=== PATIENT | male | born 1980 | race Caucasian/White ===

== ENCOUNTER 2016-07-31 16:04 | Emergency (ER) | payer OTHER ==
[2016-07-31] MEDS ORDERED: LIDOCAINE HCL 20 ML UDC PO ONE (16:24)
[2016-07-31] MEDS ORDERED: MAG HYDROX/ALUMINUM HYD/SIMETH 30 ML UDC PO ONE (16:24)
[2016-07-31] MEDS ORDERED: SUCRALFATE 1 G/10 ML UDC PO ONE (16:24)
--- NOTE | 2016-07-31 16:36 | ERNOTE ---
Chest Pain/Cardiac HPI Date of Service: 07/31/16 Chief Complaint: Chest Pain Time Seen by Provider: 07/31/16 16:11 Source: patient, RN notes reviewed Exam Limitations: no limitations Immunizations: IMMUNIZATION HX Immunizations Up to Date Yes History of Influenza Vaccine No Hx Pneumococcal Vaccination No Allergies/Adverse Reactions: Allergies cat dander Allergy (Verified 07/31/16 16:19) Home Medications: HOME MEDICATIONS NK [No Home Medication] 07/31/16 [Last Taken Unknown] Pain Score #1 Pain Score: 4 Narrative: 36 y/o male ambulatory to the ED for chest pain that began last evening while he was at a concert. The episode was brief, and followed by numbness that spread all over his body and then resolved. He then felt fine for the rest of the evening. He has since had pain off and on throughout the day today. He states that it is not pain, but more of a discomfort. He reports being tired and just not feeling right. Date (Duration): 07/30/16 Timing: intermittent Severity/Quality: mild Location: substernal, left chest Chest Pain Radiation: no radiation Activities at Onset: rest Modifying Factors - Improves: Present: nothing Modifying Factors - Worsens: Absent: breathing, coughing, eating, exercise, position, movement, rest Nitro Today/Relief: no nitro taken today Aspirin Treatment Today: 81 mg x 2 Prior Chest Pain/Cardiac Workup: Reports: no prior cardiac workup Prior Treatment: Reports: recently seen, treated by physician - for bronchitis, 6 wks ago Review of Systems - Review of Systems Constitutional: Present: recent illness, fatigue, malaise. Absent: fever, chills EYE: Present: no symptoms reported ENT: Present: no symptoms reported Respiratory: Present: cough. Absent: shortness of breath, wheezing Cardiology: Present: chest pain. Absent: palpitations, syncope, edema Gastrointestinal/Abdominal: Absent: nausea, vomiting, abdominal pain Genitourinary: Present: no symptoms reported Musculoskeletal: Absent: back pain, muscle pain, neck pain Skin: Absent: lesions, lumps, change in color Neurological: Present: numbness, tingling. Absent: headache, dizziness/light- headedness Endocrine: Present: no symptoms reported Hematologic/Lymphatic: Present: no symptoms reported Psych: Present: anxiety - Patient's Past Medical History Patient History - Medical: Other - psoriasis Patient History - Cardiac/Respiratory: Asthma Patient History - Cancer: No Hx of Cancer Patient History - Surgical Procedures: No surgical history Patient History - Other: None - Social History Living Situations: spouse Abuse History: No History of abuse Psych History: No pertinent hx Smoking Status: Never smoker Alcohol Use: occasionally Drug Use: none - Immunizations Immunizations Up to Date: Yes Hx Pneumococcal Vaccination: No History of Influenza Vaccine: No Physical Exam - Physical Exam General Appearance: Present: wd/wn, alert, no apparent distress Eye Exam: Normal inspection: bilateral Neck: Present: normal inspection, nontender, supple Respiratory: Present: no respiratory distress, normal breath sounds, no accessory muscle use, chest nontender, lungs clear Cardiovascular/Chest: Present: regular rate, rhythm, no murmur, normal peripheral pulses Extremity Exam: Present: normal inspection, no edema Neurological Exam: Present: alert, oriented, normal mood/affect Skin Exam: Present: normal color, warm/dry ED Progress - Results and Orders Patient's Lab Results:: I have reviewed the patient's lab results. - Vital Signs Patient's Vital Signs:: I have reviewed the patient's vital signs. Vital Signs: Vital Signs 07/31/16 07/31/16 16:11 16:23 Temperature 37.1 C Pulse Rate 92 90 Respiratory 16 Rate Blood Pressure 149/97 O2 Sat by Pulse 96 Oximetry - EKG EKG: NSR, RBBB - incomplete EKG read: Interp. by me - X-Ray X-Ray #1 X-Ray: chest Interpretation: Reviewed by me X-ray Comments: No acute cardiopulmonary process noted. - Progress/Reassessment Chief Complaint: Chest Pain Progress:: Unchanged Plan - Plan Plan: No change in "pain" after GI cocktail but states that his indigestion symptoms improved. Offered Toradol IM but reports he can take ibuprofen at home. Labs, xray and EKG are unremarkable. Discussed f/u with PCP for recheck of blood pressure as he reports this has been elevated for a while. Agreeable to return if symptoms worsen. Departure - Departure Clinical Impression: Chest pain of uncertain etiology Disposition: Home Follow Up Needed Condition: Stable Instructions: Chest Wall Pain Additional Instructions: Return for worsening symptoms Contact Dr. Judd this week for follow up Referrals: Sam Judd MD [Primary Care Provider] -
[2016-07-31 16:39] LABS: Hematocrit 47.1 % (42.0-52.0); Hemoglobin 15.8 gm/dL (13.5-18.0); Mean Cell Volume 87.1 fl (78-100); Mean Corpuscular Hemoglobin 29.2 pg (27-31); Mean Corpuscular Hgb Conc 33.5 g/dl (32-36); Mean Platelet Volume 9.9 fl (6.0-9.5); Neutrophil # 3.9 K/mm3 (1.3-6.0); Neutrophil % 60.7 % (42-75.0); Platelet Count 241 K/mm3 (150-450); Red Blood Count 5.41 M/mm3 (4.7-6.0); Red Cell Distribution Width 13.1 % (11.5-14.0); White Blood Count 6.5 K/mm3 (4.0-10.5)
--- OUTSIDE RECORDS SUMMARY | 2016-07-31 16:42 | XMS REPORT | Continuity of Care Document ---
:1980 Author Organization [facility] ([facility]) [place] [address] Phone [phone] Care Team Providers Name Role Phone Unavailable Primary Care Provider Unavailable Source Comments This disclosure is being made pursuant to the Care Everywhere program, applicable federal and state laws, and may not contain all informaitonavailable regarding this patient.[facility] ([facility]) Active Allergies and Adverse Reactions Not on File Current Medications Not on file Active Problems Not on file Social History Tobacco Use Types Packs/Day Years Used Date Never Assessed Plan of Care Health Maintenance Due Date Last Done Comments Hepatitis B Vaccine (1 of 3 - Primary Series) 1980 Tdap Vaccine 1990 Lipid Disorder Screening 1997 MMR Vaccine 1997 Td Vaccine 1997 Influenza Vaccine: Seasonal (#1) 12/29/2015 Results from Last 3 Months Not on file
[2016-07-31 17:06] LABS: ALT 53 U/L (19-67); AST 20 U/L (0-48); Alkaline Phosphatase * 75 U/L (50-170); Anion Gap 12.1 mmol/L (6.8-13.8); BUN/Creatinine Ratio 8.5 (9.0-21.6); Bilirubin, Total 0.8 mg/dL (0.0-1.1); Blood Urea Nitrogen 11 mg/dL (6-23); Calcium * 9.3 mg/dL (7.9-10.9); Carbon Dioxide 29.9 mmol/L (24-32.6); Chloride 102 mmol/L (97-106); Glucose * 129 mg/dL (70-110); Sodium 140 mmol/L (132-142); Total Protein 7.8 gm/dL (6.2-8.2)
[2016-07-31 17:11] LABS: Troponin I Less than 0.017 ng/ml (0.00-0.10)
[2016-07-31 17:55] VITALS: BP 146/90
== END 2016-07-31 18:13 | disposition home or self-care (01) ==
LOC: ER 16:04
DX: R07.9 Chest pain, unspecified (principal)